=== PATIENT | female | born 1930 | race Caucasian/White ===

== ENCOUNTER → 2016-10-26 19:34 | Outpatient (CLI) | payer MEDICARE, MEDICAID ==
[2016-07-16 07:14] VITALS: BMI 31.3
[~2016-10-26 19:34] MED LIST: ALBUTEROL0.63 MG/3 INH; ASPIRIN325 MG PO; ATIVAN0.5 MG PO; ATIVAN2 MG PO; BUMEX 1 MG TAB1 MG PO; CELEXA20 MG PO; CIPRO500 MG PO; FLAGYL500 MG PO; FLORANEX / LACT1 TAB PO; K-DUR20 MEQ PO; LISINOPRIL10 MG PO; METOPROLOL TART50 MG PO; PEPCID20 MG PO; PLAVIX75 MG PO; PRAVACHOL80 MG PO; QUESTRAN LIG1 PACKET PO; TOPROL XL50 MG PO; ULTRAM50 MG PO; VANCOMYCIN250 MG/51 PO
== END | disposition home or self-care (01) ==
LOC: D.LABREF 19:34
DX: I10 Essential (primary) hypertension (principal)

== ENCOUNTER 2016-11-26 07:32 | Outpatient (CLI) | payer MEDICARE, MEDICAID ==
[~2016-11-26] VITALS: Ht 157.5 cm; Wt 75.9 kg
--- NOTE | ~2016-11-26 | HEMODYNAMI ---
PATIENT:GUILLERMO LEDESMA MEDICAL RECORD: [id number] : 34 LOCATION:[facility] ADMISSION DATE: 11/26/16 Generatedon:11/26/201610:04 Patient name: GUILLERMO LEDESMA Patient #: [id number] SSN: : [id number] Date of study: 11/26/2016 Page: Of Hemodynamic Procedure Report Patient Data Patient Demographics Procedure consent was obtained First Name: GUILLERMO Gender: Female Last Name: BALTAZAR : 1930 [facility] Initial: GUNNAR Age: 86 year(s) Patient #: [id number] Race: Additional ID: [id number] Contact details Address: [address] State: [place] City: [place] Zip code: [address] Past Medical History Allergies Allergen Reaction Date Comments Reported Bactrim 12/05/2015 Sulfa drugs 07/16/2016 Bactrim Other allergy 11/26/2016 Bactrim Admission Admission Data Admission Date: 11/26/2016 Admission Time: 7:32 Admit Source: Other Lab Results Lab Result Date: 11/26/2016 Lab Result Time: 0:00 Biochemistry Name Units Result Min Max Creatinine mg/dl 1.1 --(--*-)-- 0.6 1.3 CBC Name Units Result Min Max Hemoglobin g/dl 11.7 *-(----)-- 13.5 17.5 Procedure Procedure Types Cath Procedure Diagnostic Procedure [facility] w/Coronaries PCI Procedure Coronary Stent Initial Miscellaneous Procedures Moderate Sedation up to 15 minutes Procedure Description Procedure Date Procedure Date: 11/26/2016 Procedure Start Time: 9:40 Procedure End Time: 10:04 Procedure Staff Name Function Justino Newton MD Performing Physician Mikey Burt RT Scrub Maciej Oliva RN Nurse Madyson Tong RT Monitor Procedure Data Cath Procedure Fluoroscopy Diagnostic fluoroscopy Total fluoroscopy Time: 3.7 time: 3.7 min min Diagnostic fluoroscopy Total fluoroscopy dose: 318 dose: 318 mGy mGy Contrast Material Contrast Material Type Amount (ml) Isovue 300 101 Entry Location Entry Primary Successful Side Size Upsize Upsize Entry Closure Succes sful Closure Location (Fr) 1 (Fr) 2 (Fr) Remarks Device Remarks Femoral Right 5 Fr 6 Fr Exoseal artery Short Estimated blood loss: 10 ml Diagnostic catheters Device Type Used For End Catheter Placement Cordis 5Fr JL 4.0 Left Coronary Catheter (MP) Angiography Cordis 5Fr 3DRC Catheter Right Coronary (MP) Angiography Cordis 5Fr Pigtail LV Angiography Catheter (MP) Procedure Complications No complications Procedure Medications Medication Administration Route Dosage Oxygen NC 2 l/min Heparin Flush Bag added to field 2 bags (1000units/500ml NS) 0.9% NaCl I.V. 100 ml/hr Fentanyl I.V. 50 mcg Versed I.V. 1 mg Fentanyl I.V. 50 mcg Versed I.V. 1 mg Heparin Bolus I.V. 7500 units Hemodynamics Rest HGB: 11.7 (g/dl) Heart Rate: 86 (bpm) Pressure Samples Time Site Value (mmHg) Purpose Heart Use Rate(bpm) 9:47 LV 150/7,22 EDP 86 9:48 AO 129/63(92) Pullback 83 9:48 LV 144/3,18 Pullback 83 Gradients Valve Time Site 1 Site 2 Mean SEP/DFP Peak To Heart Use (mmHg) (sec/min) Peak Rate (mmHg) (bpm) Aortic 9:48 LV AO 14 27 15 83 144/3,18 129/63(92) Calculations Valve P-P Mean Valve Index Valve Source Name Gradient Area Flow (cm2) Aortic 15 14 15 14 Snapshots Pre Cath Intra NCS Post Cath Vital Signs Time Heart Resp SPO2 etCO2 [id number] NIBP (mmHg) Rhythm Pain Sedation Rate (ipm) (%) (mmHg) (mmHg) Status Level (bpm) 9:09:21 85 17 100 0 0 126/77(105) NSR 0 (11) 10(A) , No pain 9:13:39 84 20 97 0 0 125/66(101) NSR 0 (11) 10(A) , No pain 9:17:53 83 17 99 0 0 126/71(98) NSR 0 (11) 10(A) , No pain 9:22:09 81 17 100 0 0 121/69(105) NSR 0 (11) 10(A) , No pain 9:26:23 81 16 100 0 0 119/69(97) NSR 0 (11) 10(A) , No pain 9:30:37 80 16 100 0 0 125/72(93) NSR 0 (11) 10(A) , No pain 9:34:45 80 16 100 0 0 121/76(100) NSR 0 (11) 10(A) , No pain 9:38:57 85 18 100 0 0 140/79(111) NSR 0 (11) 9(A) , No pain 9:43:15 84 20 100 0 0 135/74(109) NSR 0 (11) 9(A) , No pain 9:48:12 86 18 99 0 0 133/77(96) NSR 0 (11) 9(A) , No pain 9:52:28 79 19 100 0 0 127/68(104) NSR 0 (11) 9(A) , No pain 9:56:44 83 17 99 0 0 130/71(93) NSR 0 (11) 9(A) , No pain 10:01:02 80 17 100 0 0 146/71(110) NSR 0 (11) 9(A) , No pain Medications Time Medication Route Dose Verified Delivered Reason Notes Effectiveness by by 9:11:14 Oxygen NC 2 Maciej Maciej Per physician l/min Pj Oliva RN RN 9:11:25 Heparin Flush added 2 Maciej Maciej used for Bag to bags Pj Oliva RN procedure (1000units/500ml field RN NS) 9:11:39 0.9% NaCl I.V. 100 Maciej Maciej Per physician ml/hr Pj Oliva RN RN 9:36:19 Fentanyl I.V. 50 Maciej Maciej for sedation mcg Pj Oliva RN RN 9:36:27 Versed I.V. 1 mg Maciej Maciej for sedation Pj Oliva RN RN 9:40:00 Fentanyl I.V. 50 Maciej Maciej for sedation mcg Pj Oliva RN RN 9:40:04 Versed I.V. 1 mg Maciej Maciej for sedation Pj Oliva RN RN 9:52:16 Heparin Bolus I.V. 7500 Maciej Maciej for units Pj Oliva RN anticoagulation retail operations manager Log Time Note 8:50:12 Maciej Oliva RN sent for patient. Start room use. 8:57:13 Time tracking: Regular hours 8:57:17 Plan of Care:Hemodynamics will remain stable., Cardiac rhythm will remain stable., Comfort level will be maintained., Respiratory function will remain adequate., Patient/ family verbilizes understanding of procedure., Procedure tolerated without complication., Recovers from procedure without complications.. 9:01:10 Patient received from Pre/Post Procedure Room to CCL 1 Alert and oriented. Tansferred to table in Supine position. 9:01:11 Warm blankets applied, and tosin hugger turned on for patient comfort. 9:01:11 Correct patient and procedure confirmed by team. 9:01:13 Signed procedure consent form obtained from patient. 9:01:13 ECG and BP/O2 sat monitors applied to patient. 9:01:14 Full Disclosure recording started 9:08:17 Vital chart was started 9:10:25 Rhythm: sinus rhythm 9:10:27 Baseline sample Acquired. 9:10:37 H&P Date Dictated: 11/25/2016 Within 30 days and on chart., H&P Addendum completed by physician on day of procedure. (MUST COMPLETE FOR ALL OUTPATIENTS). 9:10:38 Pre-procedure instructions explained to patient. 9:10:38 Pre-op teaching completed and patient verbalized understanding. 9:10:40 Family in waiting room. 9:10:43 Patient NPO since Midnight. 9:11:14 Oxygen 2 l/min NC was administered by Maciej Oliva RN; Per physician; 9:11:14 Patient allergic to Other allergyBactrim 9:11:17 Is the patient allergic to Iodine/contrast media? No. 9:11:18 Is patient on blood thinner?Yes 9:11:21 ACC The patient was administered the following blood thiners within the last 24 hours: ACCPlavix 9:11:23 Patient diabetic? No. 9:11:25 Heparin Flush Bag (1000units/500ml NS) 2 bags added to field was administered by Maciej Oliva RN; used for procedure; 9:11:27 Previous problem with sedation/anesthesia? No ? 9:11:27 Snore? Yes 9:11:29 Sleep apnea? No 9:11:30 Deviated septum? No 9:11:30 Opens mouth fully? Yes 9:11:31 Sticks out tongue? Yes 9:11:33 Airway obstruction? No ? 9:11:39 0.9% NaCl 100 ml/hr I.V. was administered by Maciej Oliva RN; Per physician; 9:11:40 Dentures? Yes Lost Teeth 9:11:52 Pre procedure: right dorsailis pedis pulse 2+ Normal; easily identifiable; not easily obliterated 9:12:05 Pre procedure: right radial pulse 1+ Palpable, but thready & weak; easily obliterated 9:12:09 Patient pain scale 0/10 ?. 9:12:31 IV patent on arrival in left hand with 0.9% NaCl at [facility]. 9:12:51 Lab Result : Creatinine 1.1 mg/dl 9:12:51 Lab Result : Hemoglobin 11.7 g/dl 9:12:55 Lab results completed and on chart. 9:12:58 Right groin area was prepped with chlora-prep and draped in sterile fashion 9:12:59 Alarms reviewed by R. N. 9:13:00 Sharps counted by scrub and verified by R.N. 9:13:05 Use device set Femoral Dx 9:13:06 Acist Syringe opened to sterile field. 9:13:07 Bag Decanter opened to sterile field. 9:13:07 Medline Cath Pack opened to sterile field. 9:13:08 Terumo 5Fr [place] Sheath opened to sterile field. 9:13:08 St Marquez 260cm J .035 wire opened to sterile field. 9:13:09 Acist Hand Control opened to sterile field. 9:13:10 Acist Manifold opened to sterile field. 9:13:10 Diagnostic Infinity 5Fr Multipack catheter opened to sterile field. 9:13:11 Tegaderm 4 x 4 opened to sterile field. 9:21:29 Zero performed for pressure channel P1 9:35:48 Final Timeout: patient, procedure, and site verified with staff and physician. All members of the team are in agreement. 9:35:51 Right groin site verified by team. 9:35:53 Physical assessment completed. ASA score P 2 - A patient with mild systemic disease as per Justino Newton MD. 9:35:56 Sedation plan: IV Moderate Sedation Versed, Fentanyl 9:36:19 Fentanyl 50 mcg I.V. was administered by Maciej Oliva RN; for sedation; 9:36:27 Versed 1 mg I.V. was administered by Maciej Oliva RN; for sedation; 9:36:45 Admit Source: Other 9:36:56 Procedure type changed to Cath procedure, Diagnostic procedure, LHC, C w/Coronaries, PCI procedure, Coronary Stent Initial, Miscellaneous Procedures, Moderate Sedation up to 15 minutes 9:39:56 Procedure started. 9:40:00 Fentanyl 50 mcg I.V. was administered by Maciej Oliva RN; for sedation; 9:40:04 Versed 1 mg I.V. was administered by Maciej Oliva RN; for sedation; 9:40:28 Local anesthetic to right femoral artery with Lidocaine 2% by Jusitno Newton MD.INITIAL ACCESS ONLY 9:42:14 A 5 Fr sheath was inserted into the Right Femoral artery 9:42:37 A Cordis 5Fr JL 4.0 Catheter (MP) was advanced over the wire and used for Left Coronary Angiography. 9:44:32 Catheter removed. 9:45:48 A Cordis 5Fr 3DRC Catheter (MP) was advanced over the wire and used for Right Coronary Angiography. 9:46:28 Catheter removed. 9:46:57 Terumo 6Fr [place] Sheath opened to sterile field. 9:46:57 Ardon BMW [place] 2 J-tip 300cm 0.014 guide wir opened to sterile field. 9:46:58 Merit BasixCompak Inflation Kit opened to sterile field. 9:46:59 Cordis 6FR XBLAD 3.5 guide catheter opened to sterile field. 9:47:05 A Cordis 5Fr Pigtail Catheter (MP) was advanced over the wire and used for LV Angiography. 9:47:07 Zero performed for pressure channel P1 9:48:15 LV gram done using STEPHENS 9:48:19 EF : 55 % 9:48:23 Injector settings: Ml/sec: 10, Volume: 20, 9:48:39 LV hemodynamics recorded. 9:48:40 Catheter removed. 9:48:50 High Pressure Extension Tubing (Aman) opened to sterile field. 9:49:32 Sheath upsized to a 6 Fr Short. 9:50:14 6 Fr XBLAD 3.5 guide catheter was inserted over the wire 9:52:16 Heparin Bolus 7500 units I.V. was administered by Maciej Oliva RN; for anticoagulation; 9:53:00 BMW wire advanced. 9:57:08 Inflation Number: 1 A Medtronic Integrity 2.5 X 18 stent was prepped and advanced across the Prox LAD. The stent was deployed at 11 BONITA for 0:19 (min:sec). 9:57:59 Stent catheter was removed intact over wire. 9:57:59 Wire removed. 9:58:01 Guide catheter removed. 9:58:19 Cordis 6Fr Exoseal opened to sterile field. 9:58:31 Sheath removed intact; hemostasis achieved with Exoseal to the Right Femoral artery. 9:58:52 Procedure ended.(Physican Out) 9:59:04 Fluoroscopy time 03.70 minutes. 9:59:19 Fluoroscopy dose: 318 mGy 9:59:19 Flurop Dose total: 318 9:59:23 Contrast amount:Isovue 300 101ml. 9:59:24 Sharps counted by scrub and verified by R.N. 9:59:25 Insertion/operative site no bleeding no hematoma. 9:59:28 Post-op/insertion site Right Femoral artery dressed using a 4 x 4 and Tegaderm. 9:59:32 Post right femoral artery:stable, clean and dry 9:59:34 Post Procedure Pulses reassessed and unchanged 9:59:39 Post-procedure physical assessment completed. ASA score P 2 - A patient with mild systemic disease as per Justino Newton MD. 9:59:42 Post procedure rhythm: unchanged. 9:59:45 Estimated blood loss: 10 ml 9:59:47 Post procedure instruction explained to patient.Patient verbalizes understanding. 9:59:48 Patient needs reinforcement of post procedure teaching. 9:59:56 Procedure Complication : No complications 10:00:00 See physician's report for complete and final results. 10:01:51 Procedure and supply charges have been captured, reviewed, submitted and are correct. 10:03:53 Vital chart was stopped 10:03:54 Report given to Pre/Post Procedure Room. 10:04:00 Patient transfered to Pre/Post Procedure Room with Stretcher. 10:04:09 Procedure ended. 10:04:09 Full Disclosure recording stopped 10:04:12 End room use (Document Last) Intervention Summary Intervention Notes Time ActionType Lesion and Equipment Action# Pressure Duration Attributes Used 9:57:[address] stent Prox LAD Medtronic 1 11 00:19 Integrity 2.5 X 18 stent Device Usage Item Name Manufacture Quantity Catalog Hospital Part Current Minimal L ot# / Number Charge Number Stock Stock Serial# Code Acist Acist 1 63952 122634 128962 675206 20 Syringe Medical Systems Inc Bag Microtek 1 2002S 348958 13368 379757 5 [employer] Medline Cardinal 1 [id number] 957505 39370 424774 5 Cath Pack Health Terumo 5Fr Terumo 1 [id number] 924810 560145 806690 [address] Marquez 1 428872 319031 835282 145672 30 260cm J .035 wire Acist Hand Acist 1 91341 147225 009606 686196 5 Control Medical Systems Inc Acist Acist 1 39076 583092 210066 977606 5 Manifold Medical Systems Inc Diagnostic Cardinal 1 [id number] 947956 19188 784562 30 Infinity Health 5Fr Multipack catheter Tegaderm 4 3M 1 1626W 005132 524814 652571 5 x 4 Cordis 5Fr Cardinal 1 375275 5 JL 4.0 Health Catheter (MP) Cordis 5Fr Cardinal 1 333427 5 3DRC Health Catheter (MP) Terumo 6Fr Terumo 1 ORC549 125303 666499 869462 40 [place] Sheath Ardon BMW Ardon 1 [id number] 449491 636591 563884 5 [place] 2 Vascular J-tip 300cm 0.014 guide wir Merit Merit 1 [id number] 231596 472760 008704 15 BasixCompak Medical Inflation Kit Cordis 6FR Cardinal 1 [id number] 542656 946975 790114 10 XBLAD 3.5 Health guide catheter Cordis 5Fr Cardinal 1 823289 5 Pigtail Health Catheter (MP) High Merit 1 [id number] 541832 73606 504314 10 Pressure Medical Extension Tubing (Newton) Medtronic Medtronic 1 [id number] 657046 916339 376273 1 0 [id number] Integrity 2.5 X 18 stent Cordis 6Fr Cardinal 1 EX600 079892 682608 465418 10 CleverSet Signature Audit [place] Stage Time Signature Unsigned Intra-Procedure 11/26/2016 Madyson 10:04:25 AM Counts RT(R) Signatures Monitor : Madyson Signature : Counts RT Date : Time : [address] [place] [address]
--- NOTE | ~2016-11-26 | OP ---
PATIENT NAME: GUILLERMO LEDESMA MEDICAL RECORD: [id number] :34 LOCATION:D[facility] ADMISSION DATE: SURGEON: JASON CHAN M.D. DATE OF OPERATION: 11/26/2016 Catheterization Report REFERRING PHYSICIAN: Juan Francisco Kamara DO. PROCEDURES PERFORMED: 1. Selective coronary angiography. 2. Left heart catheterization with ventriculogram. 3. PTCA and stent placed in the LAD. INDICATION: An 86-year-old woman with history of coronary artery disease, presents with accelerating angina. EQUIPMENT USED: Diagnostic 5-Norwegian JL4, Surjit right, pigtail catheter. INTERVENTION: A 6-Norwegian XB LAD guide, BMW guide wire, 2.5 x 18 mm Integrity stent. TECHNIQUE: A 5-Norwegian sheath was inserted in retrograde fashion in the right common femoral artery. Next, selective coronary angiography was performed in standard views using 5-Norwegian JL4 and Surjit right. Left heart catheterization was performed using pigtail catheter. CORONARY ANATOMY: 1. Left main: Left main trunk is moderate in caliber. It gives rise to the LAD and circumflex. It has no obstruction. 2. LAD: This is a moderate caliber vessel extending to the apex. The proximal vessel demonstrates an eccentric 80% stenosis. The mid vessel has been stented. There is mild restenosis seen, but nothing worse than 20%. 3. Circumflex: This vessel is moderate in caliber. It has mild irregularities throughout its course, but nothing worse than 20%. 4. Right coronary: This vessel is large in caliber and dominant. The mid vessel has been stented. The stents are widely patent. There is no evidence of restenosis. 5. Left ventricle: Left ventricle is normal in size and function. No wall motion abnormalities are noted. Estimated ejection fraction is 55%. DESCRIPTION OF INTERVENTION: A 6-Norwegian sheath was inserted in retrograde fashion in the right common femoral artery. Next, 100 units per kilogram of heparin was infused. A 6-Norwegian XB LAD guide was advanced and engaged in the left main coronary artery. Next, a BMW guide wire was placed in the distal vessel. A 2.5 x 18 mm Integrity stent was placed across the stenosis and deployed at 12 atmospheres. Injection shows stent to be widely patent with 0% residual stenosis. There is marked improvement in distal flow. At this point, the wire and guide were removed. IMPRESSION: Successful percutaneous transluminal coronary angioplasty and stent in the LAD with 0% residual stenosis. TRANSINT:[id number] Voice Confirmation ID: [id number] DOCUMENT ID: [id number] OPERATIVE REPORT [id number] GUILLERMO LEDESMA TIMOTHY E M.D. CC: [id number] DICTATION DATE: 11/26/16 1007 THREAD LASTER: 11/26/16 1053 [facility] [address] [id number]
[~2016-11-26 07:32] MED LIST changes: -CIPRO500 MG PO
[2016-11-26] MEDS ORDERED: CIPRO500 MG PO (08:12)
[2016-11-26 08:20] VITALS: BP 117/75; Ht 157.5 cm; Wt 75.9 kg
[2016-11-26 08:33] LABS: BASOPHILS 0.8 % (0.0-2.0); HEMATOCRIT 36.7 % (36.0-48.0); HEMOGLOBIN 11.7 g/dL (12-16); LYMPHOCYTES 35.5 % (15-50); MCH 29.8 pg (26.0-34.0); MCHC 31.9 g/dL (31.0-37.0); MCV 93.4 fL (80.0-100.0); MEAN PLATELET VOLUME 10.7 fL (7.4-10.4); MONOCYTES 13.1 % (2-11); NEUTROPHILS 45.6 % (40-80); PLATELET COUNT 164 10x3/uL (130-400); RBC 3.93 10x6/uL (4.00-5.40); RDW 14.3 % (11.5-14.5); WBC 3.6 10x3/uL (4.8-10.8)
[2016-11-26 08:50] LABS: ANION GAP 15.7 mmol/L (8-16); CALCIUM 9.2 mg/dL (8.5-10.1); CARBON DIOXIDE 24.5 mmol/L (21.0-32.0); CREATININE - SERUM 1.1 mg/dL (0.6-1.3); POTASSIUM - SERUM 4.2 mmol/L (3.5-5.1)
--- NOTE | 2016-11-26 10:34 | NUR ---
BP 116/64 HR 57 CHEST PAIN DENIED 6 FR EXOSEAL R/GROIN CDI NO BLEEDING NO HEMATOMA NOTED PULSES PRESENT AND MARKED
--- NOTE | 2016-11-26 10:50 | NUR ---
NO DISTRESS NO COMPLAINTS FAMILY AT SIDE R/GROIN CDI SANDWICH AND SODA PROVIDED
--- NOTE | 2016-11-26 11:31 | NUR ---
PATIENT SLEEPING QUIELTY NO DISTRESS VSS
--- NOTE | 2016-11-26 11:48 | NUR ---
1125 RIGHT GROIN CATH SITE BLEEDING, DRESSING IS SATURATED AND BLOOD OOZING INTO PUBIC AREA. PRESSURE HELD AT SITE X 10 MINUTES AND BLEEDING STOPPED. FEMSTOP APPLIED X 2 NURSES, PRESSURE INFLATED TO 110 MM HG, WITH NO BLEEDING NOTED. WILL CONTINUE TO MONITOR CLOSELY. PT DENIES ANY C/O AT THIS TIME. RR EVEN AND UNLABORED, VSS. DAUGHTER AT BEDSIDE. CALL LIGHT IN REACH.
--- NOTE | 2016-11-26 12:15 | NUR ---
[address] WITH NO BLEEDING NO HEMATOMA NOTED PATIENT DENIED COMPLAINTS
--- NOTE | 2016-11-26 12:48 | NUR ---
PRESSURE RELEASED FROM FEMSTOP WITH NO BLEEDING NO HEMATOMA NOTED WILL MONITOR
--- NOTE | 2016-11-26 14:41 | NUR ---
DISHCARGE INSTRUCTIONS GONE OVER WITH PATIENT AND DAUGHTER. LEFT VIA WC TO PARKING FOR TRANSPORT HOME CHEST PAIN DENIED R/GROIN CDI
== END 2016-11-26 14:45 | disposition home or self-care (01) ==
LOC: D.CATH 07:32
PROVIDERS: Internal Medicine Cardiovascular Disease
DX: I25.110 Atherosclerotic heart disease of native coronary artery with unstable angina pectoris (principal); T82.855A Stenosis of coronary artery stent, initial encounter

== ENCOUNTER → 2016-12-15 20:14 | Outpatient (CLI) | payer MEDICARE, MEDICAID ==
[2016-11-26 08:20] VITALS: BMI 30.6
[~2016-12-15 20:14] MED LIST changes: +CIPRO500 MG PO
[2016-12-15 21:26] LABS: % SATURATION 18 % (15-55); IRON 62 ug/dl (35-150); TOTAL IRON BIND CAPACITY 341 ug/dl (260-445); UNSAT IRON BIND CAPACITY 279 ug/dl (150-375)
== END | disposition home or self-care (01) ==
LOC: D.LABREF 20:14
PROVIDERS: Family Medicine
DX: D64.9 Anemia, unspecified (principal)

== ENCOUNTER → 2017-03-17 10:47 | Outpatient (CLI) | payer MEDICARE ==
[2016-11-26 08:20] VITALS: BMI 30.6
== END | disposition home or self-care (01) ==
LOC: D.CT 10:30 → D.RT 11:00
DX: R06.00 Dyspnea, unspecified (principal)

== ENCOUNTER → 2017-04-01 08:06 | Outpatient (CLI) | payer MEDICARE, MEDICAID ==
[2016-11-26 08:20] VITALS: BMI 30.6
--- NOTE | ~2017-04-01 | EMG ---
PATIENT:GUILLERMO LEDESMA DATE OF SERVICE: 04/01/17 MEDICAL RECORD: [id number] DATE OF : 34 LOCATION: [facility] ADMISSION DATE: REFERRING PHYSICIAN: SOTO GARRETT DO INTERPRETING PHYSICIAN: GEETHA HEWITT MD DATE OF SERVICE: 04/01/2017 REFERRING PHYSICIAN: Referred by Dr. Garrett as an outpatient. ELECTROMYOGRAPHIC DATA: Electromyographic examination is limited to the left upper extremity and is limited to the nerve conduction studies only as the patient is currently on antiplatelet therapy. In the left upper extremity, left median motor stimulation elicits a compound motor action potential with a distal latency of 5.0 milliseconds, peak amplitude of only 500 microvolts and calculated conduction velocity of 19 meters per second. Left ulnar motor stimulation elicits a compound motor action potential with a distal latency of 4.1 milliseconds, peak amplitude of 4 millivolts, and calculated conduction velocity of 67 meters per second. Left ulnar motor stimulation across the elbow fails to elicit evidence of conduction block at this level. Antidromic left median sensory stimulation elicits no reliable response. Antidromic left ulnar sensory stimulation elicits a response with a distal latency of 3.9 milliseconds, amplitude of 4 microvolts and calculated conduction velocity of 58 meters per second. The left median F wave is absent. Needle electrode examination is not performed at this time as the patient is currently on antiplatelet therapy. INTERPRETATION: Electromyographic examination of the left upper extremity demonstrates absence of the left median sensory response and markedly abnormal left median motor response with a prolonged distal latency, poorly defined multiphasic compound motor action potential and markedly reduced nerve conduction velocity consistent with a left median neuropathy. Localization is not possible on electrical grounds only, although the lesion is proximal to the wrist secondary to markedly reduced calculated conduction velocity. TRANSINT:[id number] Voice Confirmation ID: [id number] DOCUMENT ID: [id number] GEETHA HEWITT MD CC: [id number] DICTATION DATE: 04/02/17 0844 NURSE OB: 04/03/17 0113 [facility] CLI 04/01/17 [id number] [place] [address]
== END | disposition home or self-care (01) ==
LOC: D.CN 02-15 08:00
DX: R20.2 Paresthesia of skin (principal)

== ENCOUNTER → 2017-06-23 08:58 | Outpatient (CLI) | payer MEDICARE ==
[2016-11-26 08:20] VITALS: BMI 30.6
--- NOTE | 2017-06-26 06:53 | EMG ---
PATIENT:GUILLERMO LEDESMA DATE OF SERVICE: 06/23/17 MEDICAL RECORD: [id number] DATE OF : 34 LOCATION: [facility] ADMISSION DATE: REFERRING PHYSICIAN: SOTO GARRETT DO INTERPRETING PHYSICIAN: GEETHA HEWITT MD DATE OF SERVICE: 06/23/2017 REFERRED BY: Dr. Garrett as an outpatient. ELECTROMYOGRAPHIC DATA: Electromyographic examination is limited to the right upper extremity nerve conduction studies and bilateral upper extremity needle electrode examination as the patient was recently here on 04/01/2017 for nerve conduction studies of the left upper extremity. Needle electrode examination was not performed at that time as the patient had been on anticoagulation with aspirin and Plavix. She has been off of medication in anticipation of this study. In the right upper extremity, right median motor stimulation elicits a compound motor action potential with a distal latency of 4.2 milliseconds, peak amplitude of 5 millivolts, and calculated conduction velocity of 52 meters per second. Right ulnar motor stimulation elicits a compound motor action potential with a distal latency of 3.7 milliseconds, peak amplitude of 4 millivolts, and calculated conduction velocity of 52 meters per second. Right ulnar motor stimulation across the elbow fails to elicit evidence of conduction block at this level. Antidromic right median sensory stimulation elicits a response with a distal latency of 4.9 milliseconds, amplitude of 9 microvolts, and calculated conduction velocity of 56 meters per second. Antidromic right ulnar sensory stimulation elicits a response with a distal latency of 5.7 milliseconds, amplitude of 30 microvolts, and calculated conduction velocity of 70 meters per second. The right median F wave has a latency of 29 milliseconds. Needle electrode examination is limited to both upper extremities. There is no abnormality of insertional activity and no abnormal spontaneous activity is seen in all muscles interrogated with the exception of an increase in insertional activity in the left abductor pollicis brevis. Motor unit potential morphology and the pattern of motor unit potential firing and recruitment demonstrates a decrease in the number of motor units firing at an increased rate consistent with decreased recruitment at the left abductor pollicis brevis. These motor units are of increased amplitude and duration. INTERPRETATION: Electromyographic examination taken together with the nerve conduction studies performed on 04/01/2017 is limited to both upper extremities demonstrating evidence of median neuropathy, at or distal to the wrist on the right, moderate in degree electrically, consistent with the diagnosis of right carpal tunnel syndrome. The changes in the left upper extremity are much more severe and prevent localization, but are consistent with carpal tunnel syndrome as well. Particularly taken together with the needle electrode examination, there is no electrical evidence of a more proximal lesion. There is evidence of active denervation that is chronic in the left abductor pollicis brevis. The remaining study is normal with the exception of mild prolongation of the right ulnar sensory distal latency, which may be consequence of the patient's age, though this is asymmetric. 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
== END | disposition home or self-care (01) ==
LOC: D.CN 08:30
DX: R20.2 Paresthesia of skin (principal)

== ENCOUNTER 2017-12-29 10:47 | Outpatient (CLI) | payer OTHER ==
[~2017-12-29] VITALS: Ht 157.5 cm; Wt 80.9 kg
--- NOTE | ~2017-12-29 | HEMODYNAMI ---
PATIENT:GUILLERMO LEDESMA MEDICAL RECORD: [id number] : 34 LOCATION:[facility] ADMISSION DATE: 12/29/17 Generatedon:12/29/201713:40 Patient name: GUILLERMO LEDESMA Patient #: [id number] SSN: : [id number] Date of study: 12/29/2017 Page: Of Hemodynamic Procedure Report Patient Data Patient Demographics Procedure consent was obtained First Name: GUILLERMO Gender: Female Last Name: BALTAZAR : 1930 [facility] Initial: GUNNAR Age: 87 year(s) Patient #: [id number] Race: Additional ID: [id number] Contact details Address: [address] State: [place] City: [place] Zip code: [address] Past Medical History Allergies Allergen Reaction Date Comments Reported Bactrim 12/05/2015 Sulfa drugs 07/16/2016 Bactrim Other allergy 11/26/2016 Bactrim Admission Admission Data Admission Date: 12/29/2017 Admission Time: 10:47 Procedure Procedure Types Cath Procedure Diagnostic Procedure LH LH w/Coronaries PCI Procedure Coronary Stent Coronary Stent Initial Peripheral Cath Diagnostic Procedure Cath Peripheral Gpvkg-Helbnkj-Snc-Off Procedure Description Procedure Date Procedure Date: 12/29/2017 Procedure Start Time: 13:06 Procedure End Time: 13:40 Procedure Staff Name Function Justino Virk MD Performing Physician Madyson Tong RT Monitor Rachael Elizabeth RN Nurse Albert Ch RT Scrub Procedure Data Cath Procedure Fluoroscopy Diagnostic fluoroscopy Total fluoroscopy Time: 5.7 time: 5.7 min min Diagnostic fluoroscopy Total fluoroscopy dose: 774 dose: 774 mGy mGy Contrast Material Contrast Material Type Amount (ml) Isovue 300 139 Entry Location Entry Primary Successful Side Size Upsize Upsize Entry Closure Rodarte ccessful Closure Location (Fr) 1 (Fr) 2 (Fr) Remarks Device Remarks Femoral Right 5 Fr Manual vein Compression Femoral Right 5 Fr 6 Fr Exoseal artery Short Estimated blood loss: 10 ml Diagnostic catheters Device Type Used For End Catheter Placement MULTIPACK JL 4.0 5Fr Procedure catheter MULTIPACK 3DRC 5Fr Procedure catheter MULTIPACK Pigtail 5 Fr Procedure catheter Procedure Complications No complications Procedure Medications Medication Administration Route Dosage Oxygen NC 2 l/min Lidocaine 2% added to field 20 Heparin Flush Bag added to field 2 bags (1000units/500ml NS) 0.9% NaCl I.V. 100 ml/hr Versed I.V. 1 mg Fentanyl I.V. 50 mcg Versed I.V. 1 mg Fentanyl I.V. 50 mcg Heparin Bolus I.V. 8000 units Plavix P.O. 600 mg Hemodynamics Rest Heart Rate: 70 (bpm) Pressure Samples Time Site Value (mmHg) Purpose Heart Use Rate(bpm) 13:15 LV 136/13,25 Snapshot 70 13:16 AO 134/66(95) Pullback 73 13:16 LV 133/16,23 Pullback 73 Gradients Valve Time Site 1 Site 2 Mean SEP/DFP Peak To Heart Use (mmHg) (sec/min) Peak Rate (mmHg) (bpm) Aortic 13:16 LV AO 0 7 0 73 133/16,23 134/66(95) Calculations Valve P-P Mean Valve Index Valve Source Name Gradient Area Flow (cm2) Aortic 0 0 0 0 Snapshots Pre Cath Intra NCS Post Cath Vital Signs Time Heart Resp SPO2 etCO2 NIBP (mmHg) Rhythm Pain Sedation Rate (ipm) (%) (mmHg) Status Level (bpm) 12:49:41 68 16 97 33.7 163/80(127) NSR 0 (11) 10(A) , No pain 12:54:04 74 23 100 33.7 160/80(126) NSR 0 (11) 10(A) , No pain 12:58:26 67 16 99 20.2 133/82(107) NSR 0 (11) 10(A) , No pain 13:02:42 67 17 99 0 121/70(106) NSR 0 (11) 10(A) , No pain 13:06:52 66 15 98 0 130/76(87) NSR 0 (11) 9(A) , No pain 13:11:04 69 14 98 0 128/80(122) NSR 0 (11) 9(A) , No pain 13:15:16 70 13 98 0 123/79(114) NSR 0 (11) 9(A) , No pain 13:19:26 70 15 99 0 134/76(120) NSR 0 (11) 9(A) , No pain 13:23:39 68 12 99 0 138/79(114) NSR 0 (11) 9(A) , No pain 13:27:59 71 14 99 0 129/67(107) NSR 0 (11) 9(A) , No pain 13:32:07 74 15 100 42.7 146/90(111) NSR 0 (11) 10(A) , No pain 13:35:22 69 19 100 44.2 161/83(126) NSR 0 (11) 10(A) , No pain Medications Time Medication Route Dose Verified Delivered Reason Notes Effectiveness by by 12:50:48 Oxygen NC 2 Justino Buffie used for l/min Aman Elizabeth RN procedure 12:50:56 Lidocaine 2% added 20ml Justino Justino for local to vial Aman Virk MD anesthetic field 12:51:02 Heparin Flush added 2 Justino Justino used for Bag to bags Aman Virk MD procedure (1000units/500ml field NS) 12:51:10 0.9% NaCl I.V. 100 Justino Buffie Per physician ml/hr Aman Elizabeth RN 12:59:21 Versed I.V. 1 mg Justino Buffie for sedation Aman Elizabeth RN 12:59:26 Fentanyl I.V. 50 Justino Buffie for sedation mcg Aman Elizabeth RN 13:11:19 Versed I.V. 1 mg Justino Buffie for sedation Aman Elizabeth RN 13:11:23 Fentanyl I.V. 50 Justino Buffie for sedation mcg Aman Elizabeth RN 13:22:26 Heparin Bolus I.V. 8,000 Justino Buffie for verifi ed units Aman Elizabeth RN anticoagulation with dr virk 13:33:28 Plavix P.O. 600 Justino Buffie for mg Aman Elizabeth RN antiplatelet therapy Procedure Log Time Note 12:24:26 Time tracking: Regular hours (M-F 7:00 - 5:00) 12:24:30 Plan of Care:Hemodynamics will remain stable., Cardiac rhythm will remain stable., Comfort level will be maintained., Respiratory function will remain adequate., Patient/ family verbilizes understanding of procedure., Procedure tolerated without complication., Recovers from procedure without complications.. 12:25:43 Albert Ch RT(R) sent for patient. Start room use. 12:42:15 Patient received from Pre/Post Procedure Room to CCL 2 Alert and oriented. Tansferred to table in Supine position. 12:42:16 Warm blankets applied, and tosin hugger turned on for patient comfort. 12:42:17 Correct patient and procedure confirmed by team. 12:42:18 Signed procedure consent form obtained from patient. 12:42:19 ECG and BP/O2 sat monitors applied to patient. 12:42:20 Full Disclosure recording started 12:48:29 Vital chart was started 12:50:48 Oxygen 2 l/min NC was administered by Rachael Elizabeth RN; used for procedure; 12:50:56 Lidocaine 2% 20ml vial added to field was administered by Justino Virk MD; for local anesthetic; 12:51:02 Heparin Flush Bag (1000units/500ml NS) 2 bags added to field was administered by Justino Virk MD; used for procedure; 12:51:10 0.9% NaCl 100 ml/hr I.V. was administered by Rachael Elizabeth RN; Per physician; 12:53:16 Rhythm: sinus rhythm 12:53:31 H&P Date Dictated: 12/15/2017 Within 30 days and on chart., H&P Addendum completed by physician on day of procedure. (MUST COMPLETE FOR ALL OUTPATIENTS). 12:53:32 Pre-procedure instructions explained to patient. 12:53:32 Pre-op teaching completed and patient verbalized understanding. 12:53:35 Family in patients room. 12:53:37 Patient NPO since Midnight. 12:53:42 Is the patient allergic to Iodine/contrast media? No. 12:53:48 Is patient on blood thinner?No 12:54:43 Last dose of Plavix was 12/26/17. 12:54:47 Patient diabetic? No. 12:54:50 Previous problem with sedation/anesthesia? No ? 12:54:52 Snore? Yes 12:54:53 Sleep apnea? No 12:54:54 Deviated septum? No 12:54:55 Opens mouth fully? Yes 12:54:55 Sticks out tongue? Yes 12:54:57 Airway obstruction? No ? 12:55:00 Dentures? Yes OUT 12:55:30 Pre procedure: right dorsailis pedis pulse Doppler 12:55:33 Pre procedure: left dorsailis pedis pulse Doppler 12:55:46 Patient pain scale 0/10 ?. 12:56:47 IV patent on arrival in left antecubital with 0.9% NaCl at [facility]. 12:56:49 Lab results completed and on chart. 12:57:39 Bilateral groins area was prepped with chlora-prep and draped in sterile fashion 12:57:40 Alarms reviewed by R. N. 12:57:41 Sharps counted by scrub and verified by R.N. 12:57:47 Use device set Femoral Dx 12:57:50 Tegaderm 4 x 4 (1626W) opened to sterile field. 12:57:51 PERCUTANEOUS ENTRY 19GA needle opened to sterile field. 12:57:52 ACIST Syringe (24016) opened to sterile field. 12:57:53 Bag Decanter (2002S) opened to sterile field. 12:57:53 Medline Cath Pack ([id number]) opened to sterile field. 12:57:55 ACIST Hand Control (02915) opened to sterile field. 12:57:55 ACIST Manifold (54825) opened to sterile field. 12:58:00 DIAGNOSTIC WIRE .035 260cm J wire (879867) opened to sterile field. 12:58:02 DIAGNOSTIC Multipack 5Fr catheter set (JE2054) opened to sterile field. 12:58:04 SHEATH Prelude 5Fr 0.035 (IYB-5S-22-035) opened to sterile field. 12:58:12 --------ALL STOP TIME OUT------ 12:58:12 Final Timeout: patient, procedure, and site verified with staff and physician. All members of the team are in agreement. 12:59:02 Bilateral groins site verified by team. 12:59:04 Physical assessment completed. ASA score P 2 - A patient with mild systemic disease as per Justino Virk MD. 12:59:07 Sedation plan: IV Moderate Sedation Medication:Versed, Fentanyl 12:59:21 Versed 1 mg I.V. was administered by Rachael Elizabeth RN; for sedation; 12:59:26 Fentanyl 50 mcg I.V. was administered by Buffie Elizabeth RN; for sedation; 13:02:07 Zero performed for pressure channel P1 13:06:18 Procedure started. 13:06:24 Local anesthetic to right femoral artery with Lidocaine 2% by Justino Virk MD.INITIAL ACCESS ONLY 13:10:07 A 5 Fr sheath was inserted into the Right Femoral vein 13:10:26 A 5 Fr sheath was inserted into the Right Femoral artery 13:11:09 A MULTIPACK JL 4.0 5Fr catheter was advanced over the wire and used for Procedure. 13:11:19 Versed 1 mg I.V. was administered by Rachael Elizabeth RN; for sedation; 13:11:23 Fentanyl 50 mcg I.V. was administered by Rachael Elizabeth RN; for sedation; 13:12:11 LCA angiography performed. 13:13:18 Catheter exchanged over wire. 13:13:24 A MULTIPACK 3DRC 5Fr catheter was advanced over the wire and used for Procedure. 13:13:46 RCA angiography performed. 13:14:15 Catheter exchanged over wire. 13:14:30 A MULTIPACK Pigtail 5 Fr catheter was advanced over the wire and used for Procedure. 13:15:41 LV angiography performed. 13:15:51 LV gram done using STPEHENS 13:16:05 EF : 55 % 13:16:07 LV hemodynamics recorded. 13:16:11 Injector settings: Ml/sec: 10, Volume: 20, 13:16:57 Abdominal Aortagram was performed. 13:17:13 Left leg runoff performed. 13:17:15 Right leg runoff performed. 13:18:24 Catheter exchanged over wire. 13:18:29 Use device set VIRK PCI 13:18:41 SHEATH Prelude 6Fr 0.035 (KFF-2C-29-035) opened to sterile field. 13:18:46 TUBING High Pressure Extension Tubing (Virk) ([id number]) opened to sterile field. 13:18:48 INFLATOR Merit BasixCompak (MS6589) opened to sterile field. 13:21:03 BMW 300cm [place] 2 J wire ([id number]) opened to sterile field. 13:21:37 Sheath upsized to a 6 Fr Short. 13:21:42 GUIDE 6FR XBLAD 3.5 catheter ([id number]) opened to sterile field. 13:21:55 6 Fr XBLAD 3.5 guide catheter was inserted over the wire 13:22:26 Heparin Bolus 8,000 units I.V. was administered by Rachael Elizabeth RN; for anticoagulation; verified with dr virk 13:22:37 BMW wire advanced. 13:23:47 Wire advanced across lesion. 13:25:28 Inflate balloon Inflation number: 1 A EMERGE OTW 2.5 x 15 balloon ([id number]) was prepped and advanced across the Mid LAD, then inflated to 8 BONITA for 0:10 (min:sec). 13:26:07 Inflation number: 2 The EMERGE OTW 2.5 x 15 balloon ([id number]) was reinflated across the Mid LAD, to 10 BONITA for 0:10 (min:sec). 13:27:16 Balloon removed over the wire. 13:29:58 Place stent Inflation Number: 3 A JEISON OTW 2.5 x 22 stent ([id number]) was prepped and advanced across the Mid LAD. The stent was deployed at 12 BONITA for 0:10 (min:sec). 13:30:29 Stent catheter was removed intact over wire. 13:30:35 Wire removed. 13:30:52 Guide catheter removed. 13:31:16 EXOSEAL 6Fr (EX600) opened to sterile field. 13:32:20 Sheath removed intact; hemostasis achieved with Exoseal to the Right Femoral artery. 13:32:53 Sheath removed intact; hemostasis achieved with Manual Compression to the Right Femoral vein. 13:32:58 Procedure ended.(Physican Out) 13:33:28 Plavix 600 mg P.O. was administered by Rachael Elizabeth RN; for antiplatelet therapy; 13:34:01 Fluoroscopy time 05.70 minutes. 13:34:04 Fluoroscopy dose: 774 mGy 13:34:04 Flurop Dose total: 774 13:34:09 Contrast amount:Isovue 300 139ml. 13:34:12 Sharps counted by scrub and verified by R.N. 13:34:14 Insertion/operative site no bleeding no hematoma. 13:34:20 Post-op/insertion site Right Femoral artery dressed using a 4 x 4 and Tegaderm. 13:34:21 Post Procedure Pulses reassessed and unchanged 13:34:28 Post-procedure physical assessment completed. ASA score P 2 - A patient with mild systemic disease as per Justino Virk MD. 13:34:30 Post procedure rhythm: unchanged. 13:34:33 Estimated blood loss: 10 ml 13:34:35 Post procedure instruction explained to patient.Patient verbalizes understanding. 13:34:36 Patient needs reinforcement of post procedure teaching. 13:34:47 Procedure type changed to Cath procedure, Diagnostic procedure, LHC, LHC w/Coronaries, PCI procedure, Coronary Stent, Coronary Stent Initial, Peripheral Cath Diagnostic Procedure, Cath Peripheral, Ffalp-Kcesjiq-Dva-Off 13:34:48 Procedure and supply charges have been captured, reviewed, submitted and are correct. 13:34:50 Procedure Complication : No complications 13:35:12 Vital chart was stopped 13:35:12 See physician's report for complete and final results. 13:35:14 Report given to Pre/Post Procedure Room. 13:35:17 Patient transfered to Pre/Post Procedure Room with Stretcher. 13:40:08 Procedure ended. 13:40:08 Full Disclosure recording stopped 13:40:13 End room use (Document Last) Intervention Summary Intervention Notes Time ActionType Lesion and Equipment Action# Pressure Duration Attributes Used 13:25:28 Inflate Mid LAD EMERGE OTW 1 8 00:10 balloon 2.5 x 15 balloon ([id number]) 13:26:07 Reinflate Mid LAD EMERGE OTW 2 10 00:10 balloon 2.5 x 15 balloon ([id number]) 13:29:58 Place stent Mid LAD JEISON OTW 2.5 3 12 00:10 x 22 stent ([id number]) Device Usage Item Name Manufacture Quantity Catalog Number Hospital Part Current Minimal Lot# / Charge Number Stock Stock Serial# Code Tegaderm 4 x 4 3M 1 [id number] [id number] 377396 5 (1626W) PERCUTANEOUS Cook Medical 1 [id number] 264582 641002 5 ENTRY 19GA needle ACIST Syringe Acist 1 23094 651260 113726 427078 20 (65372) Medical Systems Inc Bag Decanter Microtek 1 023612 44456 453025 5 () Medical Inc. Medline Cath Cardinal 1 [id number] 796419 27627 200441 5 Pack Health ([id number]) ACIST Hand Acist 1 48575 066819 275703 846935 5 Control (48926) Medical [employer] Inc ACIST Manifold Acist 1 03419 073751 473853 016974 5 (28734) [employer] Inc DIAGNOSTIC WIRE St Marquez 1 685514 569928 354917 685877 30 .035 260cm J wire (800343) DIAGNOSTIC Cardinal 1 CY8068 472169 47475 452748 30 Multipack 5Fr Health catheter set ([id number]) SHEATH Prelude Merit 1 IMN-1M-80-035 665206 997359 561295 5 5Fr 0.035 Medical (VHA-7T-02-035) MULTIPACK JL Cardinal 1 787555 5 4.0 5Fr Health catheter MULTIPACK 3DRC Cardinal 1 243666 5 5Fr catheter Health MULTIPACK Cardinal 1 891590 5 Pigtail 5 Fr Health catheter SHEATH Prelude Merit 1 LTB-2D-26-35 455393 7960673 948822 5 6Fr 0.035 Medical (UVC-8C-34-035) TUBING High Merit 1 [id number] 268401 44467 885863 10 Pressure Medical Extension Tubing (Virk) ([id number]) INFLATOR Merit Merit 1 FP0644 988697 033883 410016 15 BasixCompak Medical (IK7186) BMW 300cm Ardon 1 [id number] 358285 760597 234081 5 Le Roy 2 J Vascular wire ([id number]) GUIDE 6FR XBLAD Cardinal 1 [id number] 017782 886014 556783 10 3.5 catheter Health (95101920) EMERGE OTW 2.5 Strong 1 [id number] 528991 365777 818654 5 x 15 balloon Scientific ([id number]) JEISON OTW 2.5 x Medtronic 1 [id number] 533456 61826 050072 5 [id number] 22 stent ([id number]) EXOSEAL 6Fr Cardinal 1 EX600 475641 857152 959457 10 (EX600) Health Signature Audit [place] Stage Time Signature Unsigned Intra-Procedure 12/29/2017 Albert Ch 1:40:36 PM RT(R) Signatures Monitor : Madyson Signature : Counts RT Date : Time : [facility] [address] [place] [address]
[2017-12-29] MEDS ORDERED: LOPRESSOR25 MG PO (11:13)
[2017-12-29] MEDS ORDERED: CELEXA40 MG PO (11:13)
[2017-12-29] MEDS ORDERED: ROBAXIN-750750 MG PO (11:13)
[2017-12-29] MEDS ORDERED: PROTONIX40 MG PO (11:14)
[2017-12-29] MEDS ORDERED: ULTRAM50 MG PO (11:14)
[2017-12-29] MEDS ORDERED: NEURONTIN600 MG PO (11:14)
[2017-12-29] MEDS ORDERED: ATIVAN1 MG PO (11:15)
[2017-12-29] MEDS ORDERED: BUMEX 1 MG TAB1 MG PO (11:15)
[2017-12-29 11:22] VITALS: BP 152/75; Ht 157.5 cm; Wt 80.9 kg
[2017-12-29 11:33] LABS: BASOPHILS 0.7 % (0-2); HEMOGLOBIN 12.7 g/dL (12-16); IMMATURE GRANULOCYTES 0.4 % (0-5); MCH 30.8 pg (26.0-34.0); MCHC 32.6 g/dL (31.0-37.0); MCV 94.7 fL (80.0-100.0); MEAN PLATELET VOLUME 10.4 fL (7.4-10.4); MONOCYTES 8.8 % (2-11); NEUTROPHILS 54.1 % (40-80); RBC 4.12 10x6/uL (4.00-5.40); RDW 13.9 % (11.5-14.5); WBC 5.6 10x3/uL (4.8-10.8)
[2017-12-29 11:35] LABS: PLATELET COUNT 206 10x3/uL (130-400)
[2017-12-29 11:49] LABS: ANION GAP 13.2 mmol/L (8-16); CALCIUM 8.9 mg/dL (8.5-10.1); CREATININE - SERUM 1.3 mg/dL (0.6-1.3); POTASSIUM - SERUM 4.2 mmol/L (3.5-5.1)
== END 2017-12-29 18:05 | disposition home or self-care (01) ==
LOC: D.CATH 10:47
PROVIDERS: Internal Medicine Cardiovascular Disease
DX: I25.119 Atherosclerotic heart disease of native coronary artery with unspecified angina pectoris (principal); T82.855A Stenosis of coronary artery stent, initial encounter; Z01.812 Encounter for preprocedural laboratory examination
CPT/HCPCS: 93458; C9600

== ENCOUNTER → 2018-05-25 09:50 | Outpatient (CLI) | payer OTHER ==
[2017-12-29 11:22] VITALS: BMI 32.6
[~2018-05-25 09:50] MED LIST changes: +ATIVAN1 MG PO; +CELEXA40 MG PO; +LOPRESSOR25 MG PO; +NEURONTIN600 MG PO; +PROTONIX40 MG PO; +ROBAXIN-750750 MG PO
== END | disposition home or self-care (01) ==
LOC: D.MRI 09:50
DX: R42 Dizziness and giddiness (principal)

== ENCOUNTER 2018-12-22 06:26 | Outpatient (CLI) | payer OTHER ==
[~2018-12-22] VITALS: Ht 157.5 cm; Wt 68.2 kg
--- NOTE | ~2018-12-22 | HEMODYNAMI ---
PATIENT:GUILLERMO LEDESMA MEDICAL RECORD: [id number] : 34 LOCATION:[facility] ADMISSION DATE: 12/22/18 Generatedon:12/22/20189:05 Patient name: GUILLERMO LEDESMA Patient #: [id number] SSN: : 1930 Date of study: 12/22/2018 Page: Of Hemodynamic Procedure Report Patient Data Patient Demographics Procedure consent was obtained First Name: GUILLERMO Gender: Female Last Name: BALTAZAR : 1930 Middle Initial: GUNNAR Age: 88 year(s) Patient #: [id number] Race: Additional ID: [id number] Contact details Address: [address] State: [place] City: [place] Zip code: [address] Past Medical History Allergies Allergen Reaction Date Comments Reported Bactrim 12/05/2015 Sulfa drugs 07/16/2016 Bactrim Other allergy 11/26/2016 Bactrim Bactrim 12/22/2018 Admission Admission Data Admission Date: 12/22/2018 Admission Time: 6:26 Procedure Procedure Types Cath Procedure Diagnostic Procedure LHC LH w/Coronaries Sedation Charges Moderate Sedation up to 15 minutes Peripheral Cath Diagnostic Procedure Watch Manufacturing Supervisor Peripheral Procedures Lzwjz-Wfkmoog-Mrx-Off Procedure Description Procedure Date Procedure Date: 12/22/2018 Procedure Start Time: 8:46 Procedure End Time: 9:04 Procedure Staff Name Function Justino Newton MD Performing Physician Madyson Tong RT Monitor Silviano Reed RN Nurse Jairo Amato RT Scrub Rachael Elizabeth RN Nipple Maker Procedure Data Cath Procedure Fluoroscopy Diagnostic fluoroscopy Total fluoroscopy Time: 2 time: 2 min min Diagnostic fluoroscopy Total fluoroscopy dose: 471 dose: 471 mGy mGy Contrast Material Contrast Material Type Amount (ml) Isovue 300 115 Entry Location Entry Primary Successful Side Size Upsize Upsize Entry Closure Succes sful Closure Location (Fr) 1 (Fr) 2 (Fr) Remarks Device Remarks Femoral Right 5 Fr Exoseal artery Estimated blood loss: 5 ml Diagnostic catheters Device Type Used For End Catheter Placement MULTIPACK JL 4.0 5Fr Left Coronary catheter Angiography MULTIPACK 3DRC 5Fr Right Coronary catheter Angiography MULTIPACK Pigtail 5 Fr LV Angiography catheter MULTIPACK Pigtail 5 Fr Abdominal catheter aortogram with runoff Procedure Complications No complications Procedure Medications Medication Administration Route Dosage 0.9% NaCl I.V. 100 ml/hr Oxygen etCO2 Nasal cannula 2 l/min Heparin Flush Bag added to field 2 bags (1000units/500ml NS) Lidocaine 2% added to field 20 Versed I.V. 1 mg Fentanyl I.V. 25 mcg Hemodynamics Rest Heart Rate: 68 (bpm) Pressure Samples Time Site Value (mmHg) Purpose Heart Use Rate(bpm) 8:55 LV 126/-5,5 EDP 65 8:55 AO 134/54(88) Pullback 67 8:55 LV 145/-3,10 Pullback 67 Gradients Valve Time Site 1 Site 2 Mean SEP/DFP Peak To Heart Use (mmHg) (sec/min) Peak Rate (mmHg) (bpm) Aortic 8:55 LV AO 9 22 11 67 145/-3,10 134/54(88) Calculations Valve P-P Mean Valve Index Valve Source Name Gradient Area Flow (cm2) Aortic 11 9 11 9 Snapshots Pre Cath Intra NCS Post Cath Vital Signs Time Heart Resp SPO2 etCO2 NIBP (mmHg) Rhythm Pain Sedation Rate (ipm) (%) (mmHg) Status Level (bpm) 8:36:05 68 18 100 36 151/72(118) NSR 0 (11) 10(A) , No pain 8:40:23 65 15 99 41.2 150/78(126) NSR 0 (11) 10(A) , No pain 8:44:39 64 12 100 33 132/68(98) NSR 0 (11) 10(A) , No pain 8:48:55 65 13 100 27 134/64(101) NSR 0 (11) 10(A) , No pain 8:53:09 66 15 100 32.3 132/76(117) NSR 0 (11) 9(A) , No pain 8:57:23 68 10 99 28.5 123/71(108) NSR 0 (11) 9(A) , No pain 9:01:33 67 17 99 40.5 133/72(102) NSR 0 (11) 9(A) , No pain Medications Time Medication Route Dose Verified Delivered Reason Notes Effe ctiveness by by 8:34:10 0.9% NaCl I.V. 100 Silviano Silviano Per ml/hr Derek Reed physician RN RN 8:34:20 Oxygen etCO2 2 Silviano Silviano for low 02 Nasal l/min Lorigan Derek sats cannula RN RN 8:34:32 Heparin Flush added 2 Silviano Silviano used for Bag to bags Derek Reed procedure (1000units/500ml field RN RN NS) 8:34:44 Lidocaine 2% added 20ml Silviano Silviano for local to vial Lorigan Lorigan anesthetic field RN RN 8:44:11 Versed I.V. 1 mg Silviano Silviano for Lorigan Lorigan sedation RN RN 8:44:19 Fentanyl I.V. 25 Silviano Silviano for mcg Lorigan Lorigan sedation RN slasher runner Log Time Note 8:19:31 Time tracking: Regular hours (M-F 7:00 - 5:00) 8:19:35 Plan of Care:Hemodynamics will remain stable., Cardiac rhythm will remain stable., Comfort level will be maintained., Respiratory function will remain adequate., Patient/ family verbilizes understanding of procedure., Procedure tolerated without complication., Recovers from procedure without complications.. 8:19:53 Rachael Elizabeth RN sent for patient. Start room use. 8:20:19 H&P Date Dictated: 11/30/2018 Within 30 days and on chart., H&P Addendum completed by physician on day of procedure. (MUST COMPLETE FOR ALL OUTPATIENTS). 8:25:10 Patient received from Pre/Post Procedure Room to CCL 2 Alert and oriented. Tansferred to table in Supine position. 8:34:10 0.9% NaCl 100 ml/hr I.V. was administered by Silviano Reed RN; Per physician; 8:34:20 Oxygen 2 l/min etCO2 Nasal cannula was administered by Silviano Reed RN; for low 02 sats; 8:34:32 Heparin Flush Bag (1000units/500ml NS) 2 bags added to field was administered by Silviano Reed RN; used for procedure; 8:34:44 Lidocaine 2% 20ml vial added to field was administered by Silviano Reed RN; for local anesthetic; 8:34:51 Vital chart was started 8:35:18 Warm blankets applied, and tosin hugger turned on for patient comfort. 8:35:18 Correct patient and procedure confirmed by team. 8:35:19 Signed procedure consent form obtained from patient. 8:35:20 ECG and BP/O2 sat monitors applied to patient. 8:35:22 Full Disclosure recording started 8:35:27 Rhythm: sinus rhythm 8:35:30 Pre-procedure instructions explained to patient. 8:35:30 Pre-op teaching completed and patient verbalized understanding. 8:35:31 Family in waiting room. 8:35:34 Patient NPO since Midnight. 8:35:40 Patient allergic to Bactrim 8:35:42 Is the patient allergic to Iodine/contrast media? No. 8:35:43 Is patient on blood thinner?Yes 8:35:48 ACC The patient was administered the following blood thiners within the last 24 hours: ACCPlavix 8:35:56 Patient diabetic? No. 8:35:59 Previous problem with sedation/anesthesia? No ? 8:36:02 Snore? No 8:36:04 Sleep apnea? No 8:36:05 Deviated septum? No 8:36:05 Opens mouth fully? Yes 8:36:06 Sticks out tongue? Yes 8:36:08 Airway obstruction? No ? 8:36:13 Dentures? Yes OUT 8:36:19 Pre procedure: right dorsailis pedis pulse 2+ Normal; easily identifiable; not easily obliterated 8:36:22 Pre procedure: left dorsailis pedis pulse 2+ Normal; easily identifiable; not easily obliterated 8:36:25 Patient pain scale 0/10 ?. 8:36:33 IV patent on arrival in left forearm with 0.9% NaCl at KVO. 8:36:37 Lab results completed and on chart. 8:36:41 Bilateral groins area was prepped with chlora-prep and draped in sterile fashion 8:36:41 Alarms reviewed by R. N. 8:36:42 Sharps counted by scrub and verified by R.N. 8:36:45 Use device set Femoral Dx 8:36:46 ACIST Syringe (12283) opened to sterile field. 8:36:46 Bag Decanter (2002S) opened to sterile field. 8:36:47 Medline Cath Pack ([id number]) opened to sterile field. 8:36:47 DIAGNOSTIC WIRE .035 260cm J wire (874361) opened to sterile field. 8:36:48 ACIST Hand Control (66631) opened to sterile field. 8:36:48 ACIST Manifold (91616) opened to sterile field. 8:36:49 DIAGNOSTIC Multipack 5Fr catheter set (UP2325) opened to sterile field. 8:36:50 Tegaderm 4 x 4 (1626W) opened to sterile field. 8:36:51 SHEATH 5FR [place] (ALY082) opened to sterile field. 8:36:57 Baseline sample Acquired. 8:37:52 Physician arrived 8:38:03 --------ALL STOP TIME OUT------ 8:38:04 Final Timeout: patient, procedure, and site verified with staff and physician. All members of the team are in agreement. 8:38:07 Right groin site verified by team. 8:38:16 Maximum allowable Isovue 300 dose 300ml. Physician notified. (300ml for normal creatinines. For patients with creatinine of 1.7 or higher multiply weight(kg) x 5 divided by creatinine.) 8:38:20 Fire Safety Assessment: A--An alcohol-based skin anteseptic being used preoperatively., C--Open oxygen or nitrous oxide is being used., D--An ESU, laser, or fiber-optic light is being used. 8:38:25 Physical assessment completed. ASA score P 2 - A patient with mild systemic disease as per Justino Newton MD. 8:38:30 Sedation plan: IV Moderate Sedation Medication:Versed, Fentanyl 8:44:11 Versed 1 mg I.V. was administered by Silviano Reed RN; for sedation; 8:44:19 Fentanyl 25 mcg I.V. was administered by Silviano Reed RN; for sedation; 8:46:31 Procedure started. 8:46:35 Local anesthetic to right femoral artery with Lidocaine 2% by Justino Newton MD.INITIAL ACCESS ONLY 8:47:14 A 5 Fr sheath was inserted into the Right Femoral artery 8:49:08 A MULTIPACK JL 4.0 5Fr catheter was advanced over the wire and used for Left Coronary Angiography. 8:52:00 Zero performed for pressure channel P1 8:52:49 Catheter removed. 8:52:54 A MULTIPACK 3DRC 5Fr catheter was advanced over the wire and used for Right Coronary Angiography. 8:53:14 Catheter removed. 8:54:28 A MULTIPACK Pigtail 5 Fr catheter was advanced over the wire and used for LV Angiography. 8:55:18 LV gram done using STEPHENS 8:55:19 LV hemodynamics recorded. 8:55:24 EF : 45 % 8:55:28 Injector settings: Ml/sec: 7, Volume: 15, 8:55:49 A MULTIPACK Pigtail 5 Fr catheter was advanced over the wire and used for Abdominal aortogram with runoff. 8:59:32 Catheter removed. 8:59:35 EXOSEAL 5Fr (EX500) opened to sterile field. 8:59:45 Sheath removed intact; hemostasis achieved with Exoseal to the Right Femoral artery. 8:59:48 Procedure ended.(Physican Out) 8:59:58 Fluoroscopy time 02.00 minutes. 9:00:01 Fluoroscopy dose: 471 mGy 9:00:01 Flurop Dose total: 471 9:00:05 Contrast amount:Isovue 300 115ml. 9:00:15 Sharps counted by scrub and verified by R.N. 9:00:16 Insertion/operative site no bleeding no hematoma. 9:00:18 Post-op/insertion site Right Femoral artery dressed using a 4 x 4 and Tegaderm. 9:00:21 Post right femoral artery:stable, clean and dry 9:00:23 Post Procedure Pulses reassessed and unchanged 9:00:25 Post-procedure physical assessment completed. ASA score P 2 - A patient with mild systemic disease as per Justino Newton MD. 9:00:27 Post procedure rhythm: unchanged. 9:00:29 Estimated blood loss: 5 ml 9:00:31 Post procedure instruction explained to patient.Patient verbalizes understanding. 9:00:31 Patient needs reinforcement of post procedure teaching. 9:00:55 Procedure type changed to Cath procedure, Diagnostic procedure, LHC, LHC w/Coronaries, Sedation Charges, Moderate Sedation up to 15 minutes, Peripheral Cath Diagnostic Procedure, Watch Manufacturing Supervisor Peripheral Procedures, Ymkyd-Cdxbfwk-Vwg-Off 9:01:00 Procedure Complication : No complications 9:01:02 See physician's report for complete and final results. 9:04:14 Procedure and supply charges have been captured, reviewed, submitted and are correct. 9:04:15 Vital chart was stopped 9:04:17 Report given to Pre/Post Procedure Room. 9:04:20 Patient transfered to Pre/Post Procedure Room with Stretcher. 9:04:30 Procedure ended. 9:04:30 Full Disclosure recording stopped 9:04:35 End room use (Document Last) Device Usage Item Name Manufacture Quantity Catalog Hospital Part Current Minimal L ot# / Number Charge Number Stock Stock Serial# Code ACIST Acist 1 67318 230138 318628 503123 20 Syringe Medical (93037) Systems Inc Bag Microtek 1 2001S 226564 53887 157315 5 Decanter Medical Inc. () Medline Medline 1 [id number] 122546 36984 978146 5 Cath Pack ([id number]) DIAGNOSTIC St Marquez 1 336413 351556 052495 838697 30 WIRE .035 260cm J wire (180107) ACIST Hand Acist 1 73442 381866 922274 005369 5 Control Medical (37850) Systems Inc ACIST Acist 1 58147 770048 513051 235274 5 Manifold Medical (72450) Systems Inc DIAGNOSTIC Cardinal 1 [id number] 853977 52914 426213 30 Multipack Health 5Fr catheter set (NC8282) Tegaderm 4 3M 1 1626W 240286 289051 009146 5 x 4 (1626W) SHEATH 5FR Terumo 1 HOV076 303667 702143 703306 5 [place] (CRA889) MULTIPACK Cardinal 1 [id number] 5 JL 4.0 5Fr Health catheter MULTIPACK Cardinal 1 864615 5 3DRC 5Fr Health catheter MULTIPACK Cardinal 1 878681 5 Pigtail 5 Health Fr catheter EXOSEAL 5Fr Cardinal 1 EX500 865507 694961 519518 10 (EX500) Health Signature Audit Aston Stage Time Signature Unsigned Intra-Procedure 12/22/2018 Madyson 9:04:48 AM Counts RT(R) Signatures Monitor : Madyson Signature : Counts RT Date : Time : [facility] [address] [place] [address]
[2018-12-22] MEDS ORDERED: ALBUTEROL SULF8.5 GM INH (06:49)
[2018-12-22 06:55] VITALS: BP 135/66; Ht 157.5 cm; Wt 68.2 kg
[2018-12-22 07:14] LABS: BASOPHILS 0.4 % (0-2); EOSINOPHILS 3.1 % (0-7); HEMOGLOBIN 12.7 g/dL (12-16); LYMPHOCYTES 31.2 % (15-50); MCH 30.7 pg (26.0-34.0); MCHC 32.6 g/dL (31.0-37.0); MCV 94.2 fL (80.0-100.0); MEAN PLATELET VOLUME 11.3 fL (7.4-10.4); MONOCYTES 12.7 % (2-11); NEUTROPHILS 52.6 % (40-80); PLATELET COUNT 189 10x3/uL (130-400); RBC 4.14 10x6/uL (4.00-5.40); RDW 13.8 % (11.5-14.5); WBC 4.9 10x3/uL (4.8-10.8)
[2018-12-22 07:21] LABS: ANION GAP 14.5 mmol/L (8-16); CALCIUM 9.3 mg/dL (8.5-10.1); CARBON DIOXIDE 26.6 mmol/L (21.0-32.0); CREATININE - SERUM 1.2 mg/dL (0.6-1.3); POTASSIUM - SERUM 4.1 mmol/L (3.5-5.1)
--- NOTE | 2018-12-22 09:30 | NUR ---
2L NC, NO RESP DISTRESS. RIGHT GROIN 5F EXOSEAL CDI, NO BLEEDING OR HEMATOMA NOTED. NO C/O PAIN OR NAUSEA. VSS. CALL LIGHT WITHIN REACH.
--- NOTE | 2018-12-22 10:00 | NUR ---
RESTING QUIETLY WITH EYES CLOSED. RIGHT GROIN 5F EXOSEAL CDI, NO BLEEDING OR HEMATOMA NOTED. NO NEEDS VOICED. VSS. WILL CONTINUE TO MONITOR.
--- NOTE | 2018-12-22 10:29 | NUR ---
HOB ELEVATED 30 DEGREES. RIGHT GROIN 5F EXOSEAL CDI, NO BLEEDING OR HEMATOMA NOTED. SIPPING ON DRINK AND EATING SANDWICH WITH NO C/O NAUSEA. VSS. WILL CONTINUE TO MONITOR.
--- NOTE | 2018-12-22 11:10 | NUR ---
LEFT PIV D/C'D WITH CATHETER INTACT, BAND AID TO SITE. UP TO BEDSIDE TO GET DRESSED.
--- NOTE | 2018-12-22 11:25 | NUR ---
DISCHARGE INSTRUCTIONS GIVEN, VERBALIZED UNDERSTANDING. RIGHT GROIN 5F EXOSEAL CDI, NO BLEEDING NOTED.
--- NOTE | 2018-12-22 11:45 | NUR ---
TAKEN OUT VIA WHEELCHAIR BY CATH METAL DRAWER. LEFT FACILITY WITH FAMILY AND ALL PERSONAL BELONGINGS.
== END 2018-12-22 11:45 | disposition home or self-care (01) ==
LOC: D.CATH 06:26
PROVIDERS: ATTEND Internal Medicine Cardiovascular Disease
DX: I25.119 Atherosclerotic heart disease of native coronary artery with unspecified angina pectoris (principal); Z95.5 Presence of coronary angioplasty implant and graft; Z01.812 Encounter for preprocedural laboratory examination

== ENCOUNTER 2019-03-08 19:17 | Inpatient (IN) | payer OTHER ==
[~2019-03-08] VITALS: Ht 157.5 cm; Wt 72.7 kg
[~2019-03-08 19:17] MED LIST changes: +ALBUTEROL SULF8.5 GM INH
[2019-03-08 20:14] LABS: BASOPHILS 0.1 % (0-2); HEMATOCRIT 35.6 % (36.0-48.0); HEMOGLOBIN 11.6 g/dL (12-16); IMMATURE GRANULOCYTES 0.6 % (0-5); LYMPHOCYTES 19.3 % (15-50); MCH 29.5 pg (26.0-34.0); MCHC 32.6 g/dL (31.0-37.0); MCV 90.6 fL (80.0-100.0); MEAN PLATELET VOLUME 10.8 fL (7.4-10.4); MONOCYTES 8.3 % (2-11); NEUTROPHILS 70.7 % (40-80); PLATELET COUNT 160 10x3/uL (130-400); RBC 3.93 10x6/uL (4.00-5.40)
[2019-03-08 20:25] LABS: APTT 24.9 SECONDS (22.8-39.4); INR 1.05 (0.85-1.17); PROTIME 13.2 SECONDS (11.6-15.0)
[2019-03-08 20:35] LABS: ALBUMIN 3.7 g/dL (3.4-5.0); ANION GAP 13.2 mmol/L (8-16); BILIRUBIN - TOTAL 0.53 mg/dL (0.2-1.3); CALCIUM 8.6 mg/dL (8.5-10.1); CARBON DIOXIDE 24.7 mmol/L (21.0-32.0); CREATININE - SERUM 1.3 mg/dL (0.6-1.3); POTASSIUM - SERUM 3.9 mmol/L (3.5-5.1); PROTEIN - SERUM 6.7 g/dL (6.4-8.2)
[2019-03-08 21:07] LABS: CKMB 1.8 U/L (0.0-3.6); CREATINE KINASE 107 UL (21-215)
[2019-03-08 21:08] LABS: TROPONIN-I < 0.017 ng/mL (0.000-0.060)
--- NOTE | 2019-03-08 23:00 | NUR ---
REECIEVED TO ROOM 2121 FROM ER VIA STRETCHER. PT A&O. RESPERATIONS EVEN ON RA. IV TO LEFT HAND WITH NS INFUSING. SITE CLEAN AND DRY. HISTORY AND MED REC OBTAINED. PLACED ON TELEMETRY, 92 SR. BRUISE NOTED TO RIGHT SIDE OF NECK/CHEST. PT CURRETLY DENIES PAIN OR NEEDS, BED LOW, CL IN REACH.
--- NOTE | 2019-03-08 23:02 | NUR ---
ZOFRAN 4 MG GIVEN FOR C/O PAIN OF NAUSEA, MORPHINE INFORMATION SYSTEMS ANALYST SET UP FOR PAIN CONTROL.
[2019-03-08] MEDS ORDERED: WELLBUTRIN SR150 MG PO (23:16)
[2019-03-09 00:16] VITALS: Ht 157.5 cm; Wt 72.7 kg
[2019-03-09 03:52] LABS: ALBUMIN 3.2 g/dL (3.4-5.0); ALKALINE PHOSPHATASE 60 U/L (46-116); BILIRUBIN - TOTAL 0.47 mg/dL (0.2-1.3); CALC OSMOLALITY 281 mosm/kg (275-300); CALCIUM 8.2 mg/dL (8.5-10.1); CARBON DIOXIDE 26.9 mmol/L (21.0-32.0); CHLORIDE - SERUM 106 mmol/L (98-107); CKMB 2.7 U/L (0.0-3.6); CREATINE KINASE 146 UL (21-215); CREATININE - SERUM 1.1 mg/dL (0.6-1.3); GLUCOSE 160 mg/dL (74-106); PHOSPHOROUS 3.4 mg/dL (2.5-4.9); POTASSIUM - SERUM 4.3 mmol/L (3.5-5.1); SODIUM 139 mmol/L (136-145); TROPONIN-I < 0.017 ng/mL (0.000-0.060); UREA NITROGEN 16 mg/dL (7-18); eGFR NON AFRICAN AMERICAN 50 mL/min (90-120)
[2019-03-09 03:58] LABS: ALT (SGPT) 13 U/L (10-68)
[2019-03-09 04:02] LABS: BASOPHILS 0.2 % (0-2); EOSINOPHILS 0.2 % (0-7); HEMATOCRIT 31.2 % (36.0-48.0); IMMATURE GRANULOCYTES 0.3 % (0-5); LYMPHOCYTES 12.3 % (15-50); MCH 29.2 pg (26.0-34.0); MCHC 32.1 g/dL (31.0-37.0); MEAN PLATELET VOLUME 10.8 fL (7.4-10.4); MONOCYTES 9.8 % (2-11); NEUTROPHILS 77.2 % (40-80); PLATELET COUNT 166 10x3/uL (130-400); RBC 3.43 10x6/uL (4.00-5.40); RDW 14.2 % (11.5-14.5); WBC 6.5 10x3/uL (4.8-10.8)
[2019-03-09 04:30] VITALS: BP 146/65
--- NOTE | 2019-03-09 08:07 | NUR ---
PT ALERT AND ORIENTED X4. PT COMPLAINS OF PAIN 8/10 ALL OVER BODY. PT HAS CITY PLANNER PUMP FOR PAIN. VITALS STABBE AT THIS TIME. NO S/S OF DISTRESS. BED LOW CALL LIGHT WITHIN REACH. WILL CONTINUE TO MONITOR.
--- NOTE | 2019-03-09 08:23 | NUR ---
ASSISTED PT TO BED [place]
[2019-03-09 08:43] LABS: CKMB 2.1 U/L (0.0-3.6); CREATINE KINASE 159 UL (21-215); TROPONIN-I < 0.017 ng/mL (0.000-0.060)
[2019-03-09 08:58] VITALS: BP 149/59
[2019-03-09 12:30] VITALS: BP 143/45
[2019-03-09 14:40] LABS: CKMB 1.4 U/L (0.0-3.6); CREATINE KINASE 153 UL (21-215); TROPONIN-I < 0.017 ng/mL (0.000-0.060)
[2019-03-09 16:30] VITALS: BP 153/64
--- NOTE | 2019-03-09 17:06 | NUR ---
I have reviewed this patient and I concur with the Shift Assessment completed by the Licensed Practical Nurse today this shift.
--- NOTE | 2019-03-09 18:03 | NUR ---
PT IV INFILTRATED. 20G IV DC'D WITH CATHETER TIP IN PLACE. PT PHOTOENGRAVING FINISHER DC'D.
--- NOTE | 2019-03-09 18:32 | NUR ---
PT REFUSES SCD'S. BRUISING AND SWELLING IN ANKLE.
--- NOTE | 2019-03-09 19:22 | NUR ---
PT RESTING IN BED. BED SIDE REPORT RECEIVED. PT IS ALERT, WATCHING TV. ASSISTED WITH PULLING UP INTO BED. NAME AND DATE PLACED ON BOARD. BED LOW AND CALL LIGHT IN REACH. WILL CPOC
[2019-03-09 20:00] VITALS: BP 140/62
--- NOTE | 2019-03-09 22:32 | NUR ---
PT ASSISTED UP TO RESTROOM WITH X1 ASSIST. SLIGHT PAIN IN RIGHT ANKLE. PT HAS NO S/S OF DISTRESS. BACK TO BED. FRESH WATER GIVEN. PT DENIES ANY NEEDS. BED LOW AND CALL LIGHT IN REACH. VOIDED 400ML OF STRAW COLORED CLOUDY URINE WILL CPOC
[2019-03-10] VITALS: BP 135/67
--- NOTE | 2019-03-10 00:53 | NUR ---
NO IV IN PT AND PT DECLINES PLACEMENT DUE TO POSSIBLE DISCHARGE TODAY
--- NOTE | 2019-03-10 03:03 | NUR ---
PT LAYING IN BED. EYES CLOSED. RESP EVEN AND UNLABORED. NO S/S OF DISTRESS. WILL CPOC
[2019-03-10 04:00] VITALS: BP 130/57
[2019-03-10 04:40] LABS: PHOSPHOROUS 2.9 mg/dL (2.5-4.9)
--- NOTE | 2019-03-10 07:30 | NUR ---
ASSESSMENT COMPLETED.ALERT AND ORIENTED. DENIES ANY NEEDS, NO C/O PAIN. TELEMERTY SHOWS SR 92. REFUSES AN IV PLACEMENT. WANTS TO GO HOME. HAS SOME COPE DUE TO SEAT BELT COPE. SR UP WITH CALL LIGHT IN REACH
[2019-03-10 08:21] VITALS: BP 133/73
--- NOTE | 2019-03-10 11:31 | NUR ---
I have reviewed this patient and I concur with the Shift Assessment completed by the Licensed Practical Nurse today this shift.
[2019-03-10 12:09] VITALS: BP 126/71
[2019-03-10 13:34] LABS: HEMATOCRIT 31.1 % (36.0-48.0); HEMOGLOBIN 9.8 g/dL (12-16)
--- NOTE | 2019-03-10 14:25 | NUR ---
H&H BACK. 9.8 31.1. [facility] CALLED WITH RESULTS. PT CAN STILL DISCHARGE.
--- NOTE | 2019-03-10 15:47 | MORECARE ---
CASE MANAGEMENT DISCHARGE SUMMARY PATIENT: GUILLERMO LEDESMA UNIT: [id number] ADM DATE: 03/09/19 AGE: 89 : 32 SEX: F ROOM/BED: D.5233 AUTHOR: JOSE,DOC PHYSICIAN: REFERRING PHYSICIAN: CHAYITO APODACA MD DATE OF SERVICE: 03/10/19 Discharge Plan Patient Name: GUILLERMO LEDESMA Facility: [facility]:[place] : 1930 Planned Disposition: Home Anticipated Discharge Date: 03/10/19 Discharge Date: Expected LOS: 1 Initial Reviewer: [email or web address] Initial Review Date: 03/10/2019 Generated: 03/10/19 4:47 pm Comments DCP- Discharge Planning Updated by [email or web address]: Jae Barron on 03/10/19 2:[address] Patient Name: GUILLERMO LEDESMA Admission Status: ER Accout number: [id number] Admission Date: 03-09-2019 : 1930 Admission Diagnosis:CHEST PAIN, UNSPECIFIED Attending: CHAYITO APODACA Current LOS: 1 Anticipated DC Date: 03-10-2019 Planned Disposition: Home Primary Insurance: [employer] Discharge Planning Comments: CM MET WITH PT IN ROOM TO DISCUSS DISCHARGE PLANNING AND NEEDS. PT REPORTS LIVING AT HOME INDEPENDENTLY WITH ADULT DAUGHTER. PT HAS NO MEDICAL EQUIPMENT AND NO OUTSIDE SERVICES ASSISTING IN THE HOME. CM DISCUSSED AVAILABILITY OF HOME HEALTH, REHAB SERVICES AND MEDICAL EQUIPMENT. PT DENIES DISCHARGE NEEDS, REPORTS HER DAUGHTER FROM [place] WILL PICK HER UP FOR DISCHARGE HOME. PT PLANS TO RETURN TO HER HOME FOR A FEW DAYS AND THEN TO HER DAUGHTERS HOME IN [place]. Pizza Chef: Jae Barron DCPIA - Discharge Planning Initial Assessment Updated by [email or web address]: Jae Barron on 03/10/19 3:45 pm * Is the patient Alert and Oriented? Yes * How many steps to enter\exit or inside your home? RAMP * PCP DR. GARRETT * Pharmacy [facility] AT [address] * Preadmission Environment Home with Family * ADLs Independent * Equipment None * Other Equipment NO MEDICAL EQUIPMENT PROVIDER PREFERENCE * List name and contact numbers for known caregivers / representatives who currently or will assist patient after discharge: THALIA KEN DTR, * Verbal permission to speak to the caregivers and representatives has been obtained from the patient. N/A * Community resources currently utilized None * Please name any agencies selected above. NONE * Additional services required to return to the preadmission environment? No * Can the patient safely return to the preadmission environment? Yes * Has this patient been hospitalized within the prior 30 days at any hospital? No Patient Name: GUILLERMO LEDESMA Page [id number] at 1547 All edits/amendments must be made on the electronic document DICTATION DATE: 03/10/19 1547 TEST TUBE MAKER: SHAY 03/10/19 1547 RPT#: [id number] DC DATE: STATUS: ADM IN [facility] [address] [place] [address] END OF REPORT
== END 2019-03-10 20:38 | disposition home or self-care (01) | DRG 556 ==
LOC: D.ER 19:17 → D.M2 21:56 → OBSVTIME 21:56 → D.M2 21:56
PROVIDERS: Family Medicine; ADMIT Internal Medicine Nephrology; ATTEND Internal Medicine Nephrology
DX: M79.18 Myalgia, other site (principal); M25.561 Pain in right knee; M54.2 Cervicalgia; R51 Headache; R10.13 Epigastric pain; R07.9 Chest pain, unspecified; S80.01XA Contusion of right knee, initial encounter; V43.52XA Car driver injured in collision with other type car in traffic accident, initial encounter; D64.9 Anemia, unspecified; I10 Essential (primary) hypertension; E78.5 Hyperlipidemia, unspecified; K21.9 Gastro-esophageal reflux disease without esophagitis; I25.10 Atherosclerotic heart disease of native coronary artery without angina pectoris; F41.9 Anxiety disorder, unspecified; F32.9 Major depressive disorder, single episode, unspecified